=== PATIENT | male | born 1990 | race Two or more races ===

== ENCOUNTER 2016-12-10 20:04 | Emergency (ER) | payer OTHER ==
[~2016-12-10] VITALS: Ht 172.7 cm; Wt 77.3 kg
[2016-12-10 20:05] VITALS: BP 149/94
== END 2016-12-10 20:22 | disposition left against medical advice (07) ==
LOC: M ED 20:04
DX: Z53.21 Procedure and treatment not carried out due to patient leaving prior to being seen by health care provider (principal)

== ENCOUNTER → 2016-12-11 | Outpatient (CLI) | payer OTHER ==
--- NOTE | 2016-12-11 12:48 | REP ---
LEFT FINGERS, FOUR VIEWS: HISTORY: Injury left fourth finger. A faint linear lucency is present in the distal phalange of the fourth digit suspicious for a nondisplaced fracture. There is no dislocation. The joint spaces are normal in appearance. IMPRESSION: Possible fracture of the distal phalange of the fourth digit. Signed by Dave Bautista MD 12/11/2016 12:58 P
== END ==
LOC: M LRY 11:54
PROVIDERS: ATTEND Nurse Practitioner Family
DX: S69.92XA Unspecified injury of left wrist, hand and finger(s), initial encounter (principal); W18.30XA Fall on same level, unspecified, initial encounter; Y92.009 Unspecified place in unspecified non-institutional (private) residence as the place of occurrence of the external cause